=== PATIENT | male | born 2000 | race Caucasian/White ===

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

== ENCOUNTER 2019-04-08 13:50 | Emergency (ER) | payer MEDICAID ==
[~2019-04-08] VITALS: Ht 172.7 cm; Wt 69.4 kg
--- NOTE | 2019-04-08 14:01 | NUR ---
VALERIANO BENDER AT BEDSIDE FOR MSE.
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
--- NOTE | 2019-04-08 14:11 | NUR ---
Patient discharged to home in stable conditon. Written and verbal after care instructions given. Patient verbalizes understanding of instructions. ALL BELONGINGS W/ PT. PT SELF-AMBULATED W/O DIFFICULTY.
[2019-04-08 14:12] VITALS: BP 141/66
[2019-04-08] MEDS ORDERED: NAPROXEN 500 MG TABLET ONE (14:12)
[2019-04-08] MEDS ORDERED: NAPROXEN 500 MG TABLET PO ONE (14:15)
== END 2019-04-08 14:13 | disposition home or self-care (01) ==
LOC: ER 13:51
DX: S06.0X0A Concussion without loss of consciousness, initial encounter (principal); V19.9XXA Pedal cyclist (driver) (passenger) injured in unspecified traffic accident, initial encounter; Y93.89 Activity, other specified; Y92.89 Other specified places as the place of occurrence of the external cause; Y99.8 Other external cause status
CPT/HCPCS: A4663

== ENCOUNTER 2019-04-12 00:36 | Emergency (ER) | payer MEDICAID ==
[~2019-04-12] VITALS: Ht 170.2 cm; Wt 68.0 kg
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
== END 2019-04-12 02:44 | disposition home or self-care (01) ==
LOC: ER 00:37
DX: S09.90XA Unspecified injury of head, initial encounter (principal); W18.39XA Other fall on same level, initial encounter; Y93.89 Activity, other specified; Y92.89 Other specified places as the place of occurrence of the external cause; Y99.8 Other external cause status
CPT/HCPCS: A4663

== ENCOUNTER 2019-06-12 00:28 | Emergency (ER) | payer MEDICAID ==
[~2019-06-12] VITALS: Ht 170.2 cm; Wt 68.0 kg
--- NOTE | 2019-06-12 00:38 | NUR ---
Patient brought in by father. Patient stated that he think he might be having an anxiety attack and he has never been diagnosed with it before, Patient stated hes been feeling this way since the morning and is intermittenyt. patient states that the pain becomes aggravated with sitting up. Patient rated his pain at a 6 and described it as a pressure and aching. Patient alert and oriented and able to verbalize needs. patient on monitor showing sinus tachycardia with oxygen saturation of 100%.
--- NOTE | 2019-06-12 00:44 | NUR ---
ER physician in patients room
[2019-06-12] MEDS ORDERED: LORAZEPAM 0.5 MG TABLET ONE (00:53)
[2019-06-12] MEDS ORDERED: LORAZEPAM 0.5 MG TABLET PO ONE (01:00)
--- NOTE | 2019-06-12 01:12 | NUR ---
Patient discharged to home in stable conditon. Written and verbal after care instructions given. Patient verbalizes understanding of instructions. Patient is alert and oriented. Patient denies any pain or discomfort at this time. Patient has good understanding if discharge instructions and perscriptions. patient able to self-ambulate. Patient father escort patient to private car.
[2019-06-12 01:15] VITALS: BP 109/89
== END 2019-06-12 01:16 | disposition home or self-care (01) ==
LOC: ER 00:31
DX: F41.9 Anxiety disorder, unspecified (principal)
CPT/HCPCS: 93005; A4663

== ENCOUNTER 2019-07-02 19:57 | Emergency (ER) | payer MEDICAID ==
[~2019-07-02] VITALS: Ht 170.2 cm; Wt 67.6 kg
--- NOTE | 2019-07-02 20:20 | NUR ---
Pt ambulated in ER with stable gait, A/O x 4 and speaking in complete sentences. Pt c/o midsternal CP x 3 days. Pt states he has history of anxiety, but this episode does not feel like his anxiety attacks. VSS. Safe environment implemented.
--- NOTE | 2019-07-02 20:27 | NUR ---
Dr. Coles at bedside for MSE.
--- NOTE | 2019-07-02 20:29 | NUR ---
Pt denies drug use.
[2019-07-02 20:41] LABS: BASOPHILS # (AUTO) 0.1 K/uL (0.0-8.0); BASOPHILS % (AUTO) 0.7 % (0.0-2.0); EOSINOPHILS % (AUTO) 0.4 % (0.0-7.0); HEMATOCRIT 46.9 % (36.7-47.1); HEMOGLOBIN 16.4 g/dL (12.5-16.3); LYMPHOCYTES # (AUTO) 2.3 K/uL (20.0-40.0); LYMPHOCYTES % (AUTO) 29.5 % (20.5-74.5); MEAN CORPUSCULAR HEMOGLOBIN 29.5 uug (23.8-33.4); MEAN CORPUSCULAR HGB CONC 35 g/dL (32.5-36.3); MEAN CORPUSCULAR VOLUME 84.5 fL (73.0-96.2); MONOCYTES # (AUTO) 0.4 K/uL (2.0-10.0); MONOCYTES % (AUTO) 5.1 % (0-11); NEUTROPHILS # (AUTO) 5.1 K/uL (1.8-8.9); NEUTROPHILS % (AUTO) 64.3 % (31.5-64.5); PLATELET COUNT (AUTO) 191 K/uL (152-348); RED BLOOD CELL COUNT(AUTO) 5.55 MIL/uL (4.06-5.63); WHITE BLOOD COUNT (AUTO) 7.9 K/uL (3.6-10.2)
[2019-07-02] MEDS ORDERED: ASPIRIN 325 MG TABLET PO ONE (20:45)
[2019-07-02] MEDS ORDERED: MORPHINE SULFATE 4 MG/1 ML DISP.SYRIN IM ONE (20:45)
[2019-07-02 20:48] LABS: CREATININE 0.9 mg/dL (0.6-1.3); POTASSIUM 3.6 mmol/L (3.5-5.1)
[2019-07-02 20:53] LABS: BILIRUBIN,DIRECT 0.3 mg/dL (0.0-0.2); BILIRUBIN,TOTAL 1.6 mg/dL (0.2-1.0); TOTAL PROTEIN, SERUM 7.7 g/dL (6.4-8.2)
[2019-07-02 21:19] LABS: *AMPHETAMINE, URINE NEGATIVE (NEGATIVE); *BARBITURATE, URINE NEGATIVE (NEGATIVE); *CANNABINOID, URINE NEGATIVE (NEGATIVE); *COCCAINE, URINE NEGATIVE (NEGATIVE); *OPIATE, URINE NEGATIVE (NEGATIVE); *PHENCYCLIDINE SCREEN,URINE NEGATIVE (NEGATIVE)
[2019-07-02] MEDS ORDERED: IBUPROFEN 600 MG TABLET PO ONE (22:45)
[2019-07-02] MEDS ORDERED: IBUPROFEN 600 MG TABLET ONE (22:51)
[2019-07-03 01:07] VITALS: BP 122/68
--- NOTE | 2019-07-03 01:07 | NUR ---
Patient discharged to home in stable conditon. Written and verbal after care instructions given. Patient verbalizes understanding of instructions. Patient ambulated out of ER with stable gait.
== END 2019-07-03 01:05 | disposition home or self-care (01) ==
LOC: ER 19:59
DX: R07.89 Other chest pain (principal); R06.02 Shortness of breath
CPT/HCPCS: 36415; 71046; 80048; 80076; 80307; 84484 ×2; 85025; 85379; 93005 ×4; 96372; 99284; J2270; 70030-TC; A4663